=== PATIENT | female | born 1955 | race African-American/Black ===

== ENCOUNTER 2018-02-09 08:56 | Emergency (ER) | payer OTHER ==
[2018-02-09 09:00] VITALS: TEMP 98.3; BMI 29.9
--- NOTE | 2018-02-09 09:13 | PDOC ---
History of Present Illness - General History Source: Patient Exam Limitations: No Limitations - History of Present Illness Initial Comments: 02/09/18 10:03 The patient is a 62 year old female, with a significant past medical history of asthma, who presents to the emergency department with, 3 weeks of a fishbone stuck in her throat. As per patient, she was eating 3 weeks ago when a fish bone became stuck in her throat horizontally. She reports she attempted to wait for it to pass, however, it did not. The patient reports increased choking and gagging. She reports coughing with clear flem and associated chest discomfort, nausea, and vomiting. She reports her discomfort to feel as an ache and rates as a 4/10. As per patient, she could initially visualize the fishbone, however , no longer can. She denies recent fevers, chills, headache or dizziness. She denies recent diarrhea or constipation. She denies recent dysuria, frequency, urgency or hematuria. She denies recent chest pain or shortness of breath. Past surgical history: Lower extremities. Section (x3), Breast cyst removal. Social history: Former smoker (Quit 25 years ago). Denies EtOH use and recreational drug use. Primary Care Physician: Dr. Saurabh Castorena <Iva Whitfield - Last Filed: 02/09/18 12:26> <Margy Qureshi - Last Filed: 02/09/18 16:06> - General Chief Complaint: Foreign Body (FB) Stated Complaint: FOREIGN BODY IN THROAT Time Seen by Provider: 02/09/18 09:09 Past History <Iva Whitfield - Last Filed: 02/09/18 12:26> - Past Medical History Asthma: Yes COPD: No - Suicide/Smoking/Psychosocial Hx Smoking History: Never smoked Hx Alcohol Use: No Drug/Substance Use Hx: No Substance Use Type: None <Margy Qureshi - Last Filed: 02/09/18 16:06> - Past Medical History Allergies/Adverse Reactions: Allergies Allergy/AdvReac Type Severity Reaction Status Date / Time chocolate flavor Allergy Verified 02/09/18 09:01 iodine Allergy Verified 02/09/18 09:01 latex Allergy Rash Verified 02/09/18 09:00 Sulfa (Sulfonamide Allergy Itching Verified 02/09/18 09:00 Antibiotics) Home Medications: Ambulatory Orders Albuterol Sulfate Inhaler - [Ventolin Hfa Inhaler -] 1 - 2 inh PO QID PRN Review of Systems - Review of Systems Able to Perform ROS?: Yes Comments:: 02/09/18 10:03 (+)Constitutional - Foreign body in the throats. Pt denies Fever, Chills, weakness, (+)HEENT: Throat discomfort. denies vision changes Respiratory: Denies cough, sob, hemoptysis Cardiac: denies palpitations, light headedness, leg swelling (+)Abd/GI: Nausea and vomiting when coughing. denies abd pain, blood per rectum , melena, diarrhea : denies dysuria, frequency, discharge Musculskelatal - denies back pain, joint swelling skin - denies bruising, erythema, rash neurological: denies headache, numbness, focal weakness, tingling, ataxia, weakness hematologic: denies anemia, easy bruising, easy bleeding <Iva Whitfield - Last Filed: 02/09/18 12:26> *Physical Exam - Vital Signs Last Vital Signs Temp Pulse Resp BP Pulse Ox 98.3 F 85 18 144/85 100 02/09/18 08:57 02/09/18 08:57 02/09/18 08:57 02/09/18 08:57 02/09/18 08:57 - Physical Exam Comments: 02/09/18 10:03 GENERAL: The patient is awake, alert, and fully oriented, Nontoxic - in no acute distress. HEAD: Normocephalic, atraumatic. EYES: extraocular movements intact, sclera anicteric, conjunctiva clear. ENT: No erythema. No foreign body observed. Normal voice, moist mucous membranes. NECK: Normal range of motion, supple without lymphadenopathy, JVD, or masses. LUNGS: Breath sounds equal, clear to auscultation bilaterally. No wheezes, no crackles, no rales. HEART: Regular rate and rhythm, normal S1 and S2 without murmur, rub or gallop. ABDOMEN: Soft, nontender, normoactive bowel sounds. No guarding, no rebound. No masses. EXTREMITIES: Normal range of motion, no edema. No clubbing or cyanosis. No cords , erythema, or tenderness. NEUROLOGICAL: Fully Oriented, Alert, Normal Mood/Affect, Motor Strength 5/5. No facial assymetry, Normal speech SKIN: Warm, Dry, normal turgor, no rashes or lesions noted. <Iva Whitfield - Last Filed: 02/09/18 12:26> - Vital Signs Last Vital Signs Temp Pulse Resp BP Pulse Ox 98.3 F 85 18 144/85 100 02/09/18 08:57 02/09/18 08:57 02/09/18 08:57 02/09/18 08:57 02/09/18 08:57 <Margy Qureshi - Last Filed: 02/09/18 16:06> ED Treatment Course - LABORATORY CBC & Chemistry Diagram: 02/09/18 10:21 02/09/18 10:21 <Iva Whitfield - Last Filed: 02/09/18 12:26> - LABORATORY CBC & Chemistry Diagram: 02/09/18 10:21 02/09/18 10:21 <Margy Qureshi - Last Filed: 02/09/18 16:06> Medical Decision Making - Medical Decision Making 10:00am Call placed to Dr. Navarro's answering service , GI paperhanger contractor, awaiting call back. 10:31am Second call placed to Dr. Navarro's answering service , GI paperhanger contractor, awaiting call back. 11:00am Call returned from Dr. Navarro, case was discussed. 11:05am Call placed to Dr. Honeycutt's answering service , ENT paperhanger contractor, awaiting call back. 11:48am Second call placed to Dr. Honeycutt's answering service , ENT paperhanger contractor, awaiting call back. 12:20pm Call returned from Dr. Michael Carrizales, case was discussed. <Iva Whitfield - Last Filed: 02/09/18 12:26> - Medical Decision Making 02/09/18 09:26 I, Dr. Margy Qureshi, attest that the scribes documentation that appears above has been prepared under my direction and personally reviewed by me. I confirmed that the note above accurately reflects all work, treatment, procedures, and medical decision-making performed by me. 02/09/18 10:15 Pt 's xray noted no foreign body identified, will obtain cbc,and cmp to look for other causes of foreign body sensation in throat, cough with nausea. GI paged to evaluate pt for possible endoscopy. Pt is not in distress, no drooling noted, pt not speaking in high pitched voice. 02/09/18 10:27 02/09/18 15:56 Pt's labs noted, soft tissue xray of neck no foreign body noted, pt still c/o foreign body sensation in neck so ct done no foreign body noted, case was discussed with both Ent and Gi. Pt not in distress, plan is for pt to resume soft diet, nsaids prn for pain, pt to f/u with ent in in the next 48-72 hrs for reevaluation. Pt to return to ed for trouble breathing, drooling or as needed 02/09/18 16:04 <Margy Qureshi - Last Filed: 02/09/18 16:06> *DC/Admit/Observation/Transfer - Attestations Scribe Attestion: 02/09/18 10:04 Documentation prepared by Iva Whitfield, acting as biomedical engineering aide for Margy Qureshi MD. <Iva Whitfield - Last Filed: 02/09/18 12:26> - Discharge Dispostion Admit: No <Margy Qureshi - Last Filed: 02/09/18 16:06> Diagnosis at time of Disposition: Pharyngitis - Discharge Dispostion Disposition: HOME Condition at time of disposition: Stable - Referrals Referrals: Saurabh Castorena MD [Primary Care Provider] - Darryn Honeycutt MD [Staff Physician] - - Patient Instructions Printed Discharge Instructions: DI for Pharyngitis/Tonsillopharyngitis -- Adult , DI for Viral Pharyngitis Additional Instructions: return to ed for fever, trouble breathing,change in voice,or as needed, pt to take motrin prn for pain, soft diet f/u with ent in next 48-72 hrs - Post Discharge Activity
[2018-02-09 10:31] LABS: BASO % 0.5 % (0-2.0); EOS % 1.2 % (0-4.5); HEMATOCRIT 35.8 % (32.4-45.2); LYMPH % 36.8 % (8-40); MCH 30.7 pg (25.7-33.7); MCHC 33.4 g/dl (32.0-36.0); MEAN CELL VOLUME 91.8 fl (80-96); MEAN PLT VOLUME 8.5 fl (7.5-11.1); MONO % 7.2 % (3.8-10.2); NEUT % 54.3 % (42.8-82.8); PLATELET COUNT 197 K/MM3 (134-434); RDW 14.8 % (11.6-15.6); WHITE BLOOD COUNT 5.1 K/mm3 (4.0-10.0)
[2018-02-09 11:04] LABS: ALBUMIN 3.8 g/dl (3.4-5.0); ALK PHOS 98 U/L (45-117); ANION GAP 5 (8-16); BILIRUBIN,TOTAL 0.3 mg/dL (0.2-1.0); BLOOD UREA NITROGEN 10 mg/dL (7-18); CALCIUM 9.1 mg/dL (8.5-10.1); CHLORIDE 110 mmol/L (98-107); CO2 28 mmol/L (21-32); CREATININE 0.8 mg/dL (0.55-1.02); GLUCOSE,RANDOM 89 mg/dL (74-106); SGOT/AST 14 U/L (15-37); SGPT/ALT 12 U/L (12-78); SODIUM 143 mmol/L (136-145); TOT PROT 7.5 g/dl (6.4-8.2)
[2018-02-09] MEDS ORDERED: DEXAMETHASONE SOD PHOSPHATE 10 MG/1 ML VIAL IVPUSH ONE (12:27)
[2018-02-09] MEDS ORDERED: DEXAMETHASONE SOD PHOSPHATE 10 MG/1 ML VIAL ONE (12:32)
[2018-02-09 13:37] VITALS: BP 137/94; PULSE 61
--- NOTE | 2018-02-11 21:42 | PDOC ---
Patient Follow-up (Call Back) - Post ED Follow - Up Condition at time of discharge: Stable Disposition at time of original discharge: HOME Reason for Call Back: Radiology (CT done in ER to r/o fb, which was neg but does show spinal stenosis to cspine w/ probable cord compression to C3-4 and C4- 5 per radiology Pt called and informed of reading, states she is already aware that she has cervical stenosis and has no upper ext weaknes, numbness or tingling at this time Given Dr Pedroza's number to call for appt to have possible MRI shceduled Reasons to return to ED immediately d/w pt)
== END 2018-02-09 13:37 | disposition home or self-care (01) ==
LOC: JER 08:56
PROC: 3E0333Z Introduction of Anti-inflammatory into Peripheral Vein, Percutaneous Approach (ICD-10-PCS; principal; 2018-02-09)
DX: J02.9 Acute pharyngitis, unspecified (principal); J45.909 Unspecified asthma, uncomplicated
CPT/HCPCS: 36415; 70360-TC-FY; 70490-TC; 80053; 85025; 96374; 99282-25; J1100